=== PATIENT | female | born 1935 | race Caucasian/White ===

== ENCOUNTER 2023-07-07 08:47 | Emergency (ER) | payer OTHER, MEDICAID ==
[~2023-07-07] VITALS: Ht 160 cm; Wt 54.4 kg
[2023-07-07 08:48] VITALS: BP_SYST 159; PULSE 62; RESP 18; TEMP 97.3; O2SAT 96
[2023-07-07] MEDS ORDERED: GASTROGRAFIN 120 ML ONE (09:12)
== END 2023-07-07 09:20 ==
LOC: SED 08:47
DX: K94.23 Gastrostomy malfunction (principal); Z79.899 Other long term (current) drug therapy
CPT/HCPCS: 99284; 43762; 74240; Q9963